=== PATIENT | male | born 1975 | race Caucasian/White ===

== ENCOUNTER 2017-08-21 18:33 | Observation (INO) | payer BC ==
[2017-08-21] MEDS ORDERED: ASPIRIN 81 MG TABLET, CHEWABLE PO ONE (18:44)
--- NOTE | 2017-08-21 18:48 | ER Document Report ---
ED Medical Screen (RME) - General Chief Complaint: Chest Pain Stated Complaint: CHEST PAIN Time Seen by Provider: 08/21/17 18:44 TRAVEL OUTSIDE OF THE [place] IN LAST 30 DAYS: No - HPI Notes: 08/21/17 18:47 Chest pressure just prior to arrival at 6:00. No past medical history does not smoke does not drink brother has atrial fibrillation - Related Data Allergies/Adverse Reactions: Penicillins Adverse Reaction (Mild, Verified 08/21/17 18:43) Past Medical History - Past Medical History Cardiac Medical History: Denies: Hx Coronary Artery Disease, Hx Heart Attack, Hx Hypertension Pulmonary Medical History: Reports: Hx Pneumonia - x 1 Denies: Hx Asthma, Hx Bronchitis, Hx COPD Neurological Medical History: Denies: Hx Cerebrovascular Accident, Hx Seizures Renal/ Medical History: Denies: Hx Peritoneal Dialysis Musculoskeltal Medical History: Denies Hx Arthritis Past Surgical History: Reports: Hx Orthopedic Surgery. Denies: Hx Pacemaker - Immunizations Hx Diphtheria, Pertussis, Tetanus Vaccination: No Review of Systems - Review of Systems Cardiovascular: Chest pain Respiratory: Short of breath Physical Exam - Vital signs Vitals: Temp Pulse BP Pulse Ox 98.2 F 93 133/83 H 100 08/21/17 18:40 08/21/17 18:40 08/21/17 18:40 08/21/17 18:40 - Cardiovascular Rhythm: Regular Heart sounds: Normal auscultation Course - Vital Signs Vital signs: Temp Pulse Resp BP Pulse Ox 98.2 F 93 133/83 H 100 08/21/17 18:40 08/21/17 18:40 08/21/17 18:40 08/21/17 18:40
--- NOTE | 2017-08-21 19:14 | RADIOLOGY REPORT (SQ) ---
EXAM DESCRIPTION: CHEST SINGLE VIEW COMPLETED DATE/TIME: 08/21/2017 7:08 pm REASON FOR STUDY: cp COMPARISON: 08/07/2011. EXAM PARAMETERS: NUMBER OF VIEWS: One view. TECHNIQUE: Single frontal radiographic view of the chest acquired. RADIATION DOSE: NA LIMITATIONS: None. FINDINGS: LUNGS AND PLEURA: No opacities, masses or pneumothorax. No pleural effusion. MEDIASTINUM AND HILAR STRUCTURES: No masses. Contour normal. HEART AND VASCULAR STRUCTURES: Heart normal in size. Normal vasculature. BONES: No acute findings. HARDWARE: None in the chest. OTHER: No other significant finding. IMPRESSION: NO ACUTE RADIOGRAPHIC FINDING IN THE CHEST. TECHNICAL DOCUMENTATION: JOB ID: [id number]
[2017-08-21] MEDS ORDERED: NITROGLYCERIN 2% OINTMENT 1 GM PACKET TP ONE (19:23)
[2017-08-21 19:45] LABS: PROTHROMBIN TIME 13.3 SEC (11.4-15.4)
[2017-08-21 19:56] LABS: ABSOLUTE EOSINOPHILS # (AUTO) 0.1 10^3/uL (0.0-0.6); ABSOLUTE LYMPHOCYTES (AUTO) 2.3 10^3/uL (0.5-4.7); ABSOLUTE MONOCYTES (AUTO) 0.7 10^3/uL (0.1-1.4); ABSOLUTE NEUT (AUTO) 6.4 10^3/uL (1.7-8.2); ALANINE AMINOTRANSFERASE 56 U/L (21-72); ALBUMIN 4.9 g/dL (3.5-5.0); ALKALINE PHOSPHATASE 83 U/L (38-126); ANION GAP 17 (5-19); ASPARTATE AMINO TRANSFERASE 26 U/L (17-59); BASOPHILS % (AUTO) 0.4 % (0-2); BILIRUBIN,DIRECT 0.4 mg/dL (0.0-0.4); BILIRUBIN,TOTAL 0.8 mg/dL (0.2-1.3); BLOOD UREA NITROGEN 20 mg/dL (7-20); CALCIUM 10.3 mg/dL (8.4-10.2); CARBON DIOXIDE 22 mmol/L (22-30); CHLORIDE 104 mmol/L (98-107); CREATINE KINASE 228 U/L (55-170); CREATININE RESULT 0.81 mg/dL (0.52-1.25); EOSINOPHILS % (AUTO) 0.7 % (0-6); GLUCOSE 116 mg/dL (75-110); HEMATOCRIT 41.7 % (37.9-51.0); HEMOGLOBIN 14.9 g/dL (13.5-17.0); LIPASE 117.1 U/L (23-300); LYMPHOCYTES % (AUTO) 24.1 % (13-45); MAGNESIUM 1.8 mg/dL (1.6-2.3); MEAN CORPUSCULAR HEMOGLOBIN 30.4 pg (27.0-33.4); MEAN CORPUSCULAR HGB CONC 35.6 g/dL (32.0-36.0); MEAN CORPUSCULAR VOLUME 85 fl (80-97); MONOCYTES % (AUTO) 7.4 % (3-13); POTASSIUM 3.7 mmol/L (3.6-5.0); RED BLOOD COUNT 4.89 10^6/uL (4.35-5.55); RED CELL DISTRIBUTION WIDTH 13.1 % (11.5-14.0); SEGMENTED NEUTROPHILS % (AUTO) 67.4 % (42-78); SODIUM 142.7 mmol/L (137-145); TOTAL PROTEIN 7.9 g/dL (6.3-8.2); WHITE BLOOD COUNT 9.5 10^3/uL (4.0-10.5)
[2017-08-21 20:03] LABS: D-DIMER < 0.27 ug/mL (0.00-0.50)
[2017-08-21 20:08] LABS: CREATINE KINASE MB 2.4 ng/mL (<4.55); TROPONIN I 0.013 ng/mL
--- NOTE | 2017-08-21 20:25 | EKG REPORT ---
SEVERITY:- OTHERWISE NORMAL ECG - SINUS RHYTHM BORDERLINE LEFT AXIS DEVIATION : Confirmed by: Isabelle Shaw MD 21-Aug-2017 20:24:32
[2017-08-21] MEDS ORDERED: NITROGLYCERIN 0.4 MG/TAB 25 TAB/BOTTLE ONE (20:47)
[2017-08-21] MEDS ORDERED: NITROGLYCERIN 0.4 MG/TAB 25 TAB/BOTTLE SL PRN ×2 (21:13→21:21)
[2017-08-21] MEDS ORDERED: LANSOPRAZOLE 15 MG TAB.RAP.DR PO ONE (21:21)
[2017-08-21] MEDS ORDERED: MORPHINE SULFATE 10 MG/ML INJ IV PRN (21:21)
[2017-08-21] MEDS ORDERED: ONDANSETRON HCL INJ/PF 4 MG/2 ML SDV IV PRN (21:21)
--- NOTE | 2017-08-21 21:23 | ER Document Report ---
ED General - General Chief Complaint: Chest Pain Stated Complaint: CHEST PAIN Time Seen by Provider: 08/21/17 18:44 Notes: Patient is a 42-year-old male with past medical history of obesity who presents with chest pain. Patient states that he had a constant chest burning all day today while at work. States that he left work at approximately 5:30 PM to go to his son's soccer game, when he exited his car and began walking towards his where his was seated he developed a severe, crushing pain over the left side of his chest. States that as he continued to walk he became extremely short of breath, diaphoretic and felt as though he was about to vomit. His at the bedside reports that when she saw him walking up to her, she ended a phone call she was on because he appeared so ill. She notes that he was extremely diaphoretic and appeared to be clutching over his left chest. Patient states that when he sat back down in the car he did have significant improvement of the chest pain. He has no history of similar symptoms in the past. No family cardiac history. Patient has no personal cardiac history. At time of my assessment he states that his pain is now mostly resolved. He no longer feels short of breath. He has no history of DVT or pulmonary embolus. Notes that when he was having this episode of pain apparently his heart rate on his Fitbit was listed as 150. TRAVEL OUTSIDE OF THE [place] IN LAST 30 DAYS: No - Related Data Allergies/Adverse Reactions: Penicillins Adverse Reaction (Mild, Verified 08/21/17 18:43) Past Medical History - General Information source: Patient - Social History Smoking Status: Never Smoker Frequency of alcohol use: None Drug Abuse: None Lives with: Spouse/Significant other Family History: Reviewed & Not Pertinent - Past Medical History Cardiac Medical History: Denies: Hx Coronary Artery Disease, Hx Heart Attack, Hx Hypertension Pulmonary Medical History: Reports: Hx Pneumonia - x 1 Denies: Hx Asthma, Hx Bronchitis, Hx COPD Neurological Medical History: Denies: Hx Cerebrovascular Accident, Hx Seizures Renal/ Medical History: Denies: Hx Peritoneal Dialysis Musculoskeltal Medical History: Denies Hx Arthritis Past Surgical History: Reports: Hx Orthopedic Surgery. Denies: Hx Pacemaker - Immunizations Hx Diphtheria, Pertussis, Tetanus Vaccination: No Review of Systems - Review of Systems Notes: Constitutional: Negative for fever. HENT: Negative for sore throat. Eyes: Negative for visual changes. Cardiovascular: Positive for chest pain. Respiratory: Negative for shortness of breath. Gastrointestinal: Negative for abdominal pain, vomiting or diarrhea. Genitourinary: Negative for dysuria. Musculoskeletal: Negative for back pain. Skin: Negative for rash. Neurological: Negative for headaches, weakness or numbness. 10 point ROS negative except as marked above and in HPI. Physical Exam - Vital signs Vitals: Temp Pulse BP Pulse Ox 98.2 F 93 133/83 H 100 08/21/17 18:40 08/21/17 18:40 08/21/17 18:40 08/21/17 18:40 Interpretation: Normal Notes: PHYSICAL EXAMINATION: GENERAL: Well-appearing, well-nourished and in no acute distress. HEAD: Atraumatic, normocephalic. EYES: Pupils equal round and reactive to light, extraocular movements intact, sclera anicteric, conjunctiva are normal. ENT: nares patent, oropharynx clear without exudates. Moist mucous membranes. NECK: Normal range of motion, supple without lymphadenopathy LUNGS: Breath sounds clear to auscultation bilaterally and equal. No wheezes rales or rhonchi. HEART: Regular rate and rhythm without murmurs ABDOMEN: Soft, nontender, normoactive bowel sounds. No guarding, no rebound. No masses appreciated. EXTREMITIES: Normal range of motion, no pitting or edema. No cyanosis. NEUROLOGICAL: No focal neurological deficits. Moves all extremities spontaneously and on command. PSYCH: Normal mood, normal affect. SKIN: Warm, Dry, normal turgor, no rashes or lesions noted. Course - Re-evaluation Re-evalutation: 08/21/17 21:22 Patient presents with a very worrisome chest pain story including diaphoresis, shortness of breath with a chest pressure during exertion. Patient's only known risk factor is obesity although he does not follow with any kind of primary care provider where he would know his risk factors at baseline. He is chest pain-free after 2 sublingual nitroglycerin. He has received aspirin. EKG does not show any ischemic changes and initial troponin is normal. However given the very concerning nature of his story, I have discussed this case with the hospitalist on-call Dr. Bird who will admit. - Vital Signs Vital signs: Temp Pulse Resp BP Pulse Ox 97.5 F 64 16 121/80 97 08/22/17 00:00 08/22/17 00:00 08/22/17 00:00 08/22/17 00:00 08/22/17 00:00 - Laboratory Result Diagrams: 08/21/17 19:06 08/21/17 19:06 Laboratory results interpreted by me: 08/21/17 19:06 Glucose 116 H Calcium 10.3 H Creatine Kinase 228 H - Diagnostic Test Radiology reviewed: Image reviewed, Reports reviewed Radiology results interpreted by me: 08/21/17 21:23 Chest x-ray: No acute infiltrate or pneumothorax - EKG Interpretation by Me Additional EKG results interpreted by me: 08/21/17 21:23 Normal sinus rhythm. Rate 87. No ST elevations or depressions. QTC is 443. Discharge - Discharge Clinical Impression: Chest pain Qualifiers: Chest pain type: unspecified Qualified Code(s): R07.9 - Chest pain, unspecified Condition: Fair Disposition: ADMITTED OBSERVATION Admitting Provider: Hospitalist - [place] [facility] Admitted: Telemetry
[2017-08-21] MEDS ORDERED: INFLUENZA ADLT QUAD (36MOS+) 2017-18 VAC 0.5 ML SYR IM PRN (23:13)
[2017-08-21] MEDS ORDERED: NORMAL SALINE 1000 ML 1,000 ML IV PRN (23:17)
--- NOTE | 2017-08-21 23:24 | PDOC H&P ---
History of Present Illness Admission Date/PCP: 08/21/17 21:21 SEBASTIAN TUBBS MD History of Present Illness: JOSHUA MAI is a 42 year old male with no past medical history who presents to the emergency department with complaints of chest pain. Patient reports earlier today he had some chest burning at work and then had no relief with Tums. He reports he does not normally have indigestion. He then went to his son's soccer game and when walking across the feel he developed substernal chest pressure which did not radiate. He reports that this was a 10 out of 10. He denies any radiation. He reports associated diaphoresis, shortness of breath and nausea but denies any associated vomiting or metallic taste in his mouth. He reports that his heart rate went up to 150s according to his Fitbit. He was having a difficult time walking. He reports that the chest pressure improved with rest and was completely ameliorated by 2 sublingual nitroglycerin. Patient has not seen a primary care physician in approximately 3 years. He is referred to hospital service for chest pain. Past Medical History Cardiac Medical History: Denies: Coronary Artery Disease, Myocardial Infarction, Hypertension Pulmonary Medical History: Reports: Pneumonia - x 1 Denies: Asthma, Bronchitis, Chronic Obstructive Pulmonary Disease (COPD) Neurological Medical History: Denies: Seizures Musculoskeltal Medical History: Denies: Arthritis Hematology: Denies: Anemia Past Surgical History Past Surgical History: Reports: Herniorrhaphy, Orthopedic Surgery Denies: Pacemaker Social History Smoking Status: Never Smoker Frequency of Alcohol Use: Occasional Amount of Alcoholic Beverages Per Day: 2 or 3 beers on the weekend Hx Recreational Drug Use: No Drugs: None Hx Prescription Drug Abuse: No - Advance Directive Resuscitation Status: Full Code Surrogate healthcare decision maker:: Rebeka Mai, Family History Family History: Hypertension, Other - Father of complications of AVM and persistent vegetative state Parental Family History Reviewed: Yes Children Family History Reviewed: Yes Sibling(s) Family History Reviewed.: Yes Medication/Allergy Home Medications: No Home Medications 03/16/15 Allergies/Adverse Reactions: Penicillins Adverse Reaction (Mild, Verified 08/21/17 18:43) Review of Systems Constitutional: ABSENT: chills, fever(s), headache(s), weight gain, weight loss Eyes: ABSENT: visual disturbances Ears: ABSENT: hearing changes Cardiovascular: PRESENT: as per HPI. ABSENT: chest pain, dyspnea on exertion, edema, orthropnea, palpitations Respiratory: ABSENT: cough, hemoptysis Gastrointestinal: ABSENT: abdominal pain, constipation, diarrhea, hematemesis, hematochezia, nausea, vomiting Genitourinary: ABSENT: dysuria, hematuria Musculoskeletal: ABSENT: joint swelling Integumentary: ABSENT: rash, wounds Neurological: ABSENT: abnormal gait, abnormal speech, confusion, dizziness, focal weakness, syncope Psychiatric: ABSENT: anxiety, depression, homidical ideation, suicidal ideation Endocrine: ABSENT: cold intolerance, heat intolerance, polydipsia, polyuria Hematologic/Lymphatic: ABSENT: easy bleeding, easy bruising Physical Exam Vital Signs: Temp Pulse Resp BP Pulse Ox 98 F 93 21 H 115/79 97 08/21/17 22:05 08/21/17 18:40 08/21/17 22:01 08/21/17 22:01 08/21/17 22:01 General appearance: PRESENT: no acute distress, obese, well-developed, well- nourished Head exam: PRESENT: atraumatic, normocephalic Eye exam: PRESENT: conjunctival injection - Bilateral, conjunctiva pink, EOMI, PERRLA. ABSENT: scleral icterus Ear exam: PRESENT: normal external ear exam Mouth exam: PRESENT: moist, tongue midline Neck exam: ABSENT: carotid bruit, JVD, lymphadenopathy, thyromegaly, tracheal deviation Respiratory exam: PRESENT: clear to auscultation oc. ABSENT: rales, rhonchi, wheezes Cardiovascular exam: PRESENT: RRR, +S1, +S2. ABSENT: diastolic murmur, gallop, rubs, systolic murmur Pulses: PRESENT: normal dorsalis pedis pul Vascular exam: PRESENT: normal capillary refill GI/Abdominal exam: PRESENT: normal bowel sounds, soft. ABSENT: distended, guarding, mass, organolmegaly, rebound, tenderness Rectal exam: PRESENT: deferred Extremities exam: PRESENT: full ROM. ABSENT: calf tenderness, clubbing, pedal edema Neurological exam: PRESENT: alert, awake, oriented to person, oriented to place , oriented to time, oriented to situation, CN II-XII grossly intact. ABSENT: motor sensory deficit Psychiatric exam: PRESENT: appropriate affect, normal mood. ABSENT: homicidal ideation, suicidal ideation Skin exam: PRESENT: dry, intact, warm. ABSENT: cyanosis, rash Results Laboratory Results: 08/21/17 08/21/17 08/21/17 19:06 19:06 19:06 WBC 9.5 Hgb 14.9 Hct 41.7 MCV 85 Plt Count 218 INR 0.94 D-Dimer < 0.27 Sodium 142.7 Potassium 3.7 Anion Gap 17 BUN 20 Creatinine 0.81 Glucose 116 H Calcium 10.3 H Magnesium 1.8 Total Bilirubin 0.8 AST 26 ALT 56 Alkaline Phosphatase 83 Creatine Kinase 228 H CK-MB (CK-2) Troponin I Albumin 4.9 Lipase 117.1 08/21/17 19:06 WBC Hgb Hct MCV Plt Count INR D-Dimer Sodium Potassium Anion Gap BUN Creatinine Glucose Calcium Magnesium Total Bilirubin AST ALT Alkaline Phosphatase Creatine Kinase CK-MB (CK-2) 2.40 Troponin I 0.013 Albumin Lipase EKG Comments: Q waves in 1 and aVL, normal sinus rhythm Impressions: Chest X-Ray 08/21/17 18:44 IMPRESSION: NO ACUTE RADIOGRAPHIC FINDING IN THE CHEST. Status: Imported from PACS Assessment & Plan - Diagnosis (1) Chest pain Qualifiers: Chest pain type: unspecified Qualified Code(s): R07.9 - Chest pain, unspecified Is this a current diagnosis for this admission?: Yes Plan: Place patient on telemetry and rule out for acute coronary syndrome. Patient's story is quite concerning for myocardial infarction. Monitor cardiac enzymes and EKG every 6. Place patient on Lovenox, oxygen, Lipitor, metoprolol, morphine, aspirin, and nitroglycerin. Obtain Cardiolite stress test if cardiac enzymes are negative. (2) Obesity (BMI 30.0-34.9) Is this a current diagnosis for this admission?: Yes Plan: Encourage weight loss - Time Time Spent: 30 to 50 Minutes Medications reviewed and adjusted accordingly: Yes Anticipated discharge: Home Within: within 24 hours - Inpatient Certification Based on my medical assessment, after consideration of the patient's comorbidities, presenting symptoms, or acuity I expect that the services needed warrant INPATIENT care.: Yes I certify that my determination is in accordance with my understanding of Medicare's requirements for reasonable and necessary INPATIENT services [42 CFR 412.3e].: Yes Medical Necessity: Need For Continuous Telemetry Monitoring Post Hospital Care: D/C Family Living Educator Documentation
[2017-08-21] MEDS: ENOXAPARIN SODIUM INJ 100 MG/1 ML DISP.SYRIN SUBCUT SCH (23:39)
[2017-08-21] MEDS: METOPROLOL TARTRATE PF/INJ 5 MG/5 ML SDV IV PRN ×3 (23:43→23:51)
[2017-08-22] MEDS ORDERED: METOPROLOL TARTRATE PF/INJ 5 MG/5 ML SDV IV PRN (00:08)
[2017-08-22] MEDS: METOPROLOL TARTRATE PF/INJ 5 MG/5 ML SDV IV PRN (00:10)
[2017-08-22 01:29] LABS: URINE BARBITURATES SCREEN NEGATIVE; URINE METHADONE SCREEN NEGATIVE; URINE OPIATES LOW NEGATIVE; URINE PHENCYCLIDINE SCREEN NEGATIVE
[2017-08-22 02:52] LABS: CREATINE KINASE MB 1.61 ng/mL (<4.55)
[2017-08-22 03:04] LABS: TROPONIN I < 0.012 ng/mL
[2017-08-22] MEDS ORDERED: LANSOPRAZOLE 30 MG TAB.RAP.DR PO SCH (06:00)
[2017-08-22 08:35] LABS: HEMATOCRIT 41.2 % (37.9-51.0); HEMOGLOBIN 14.5 g/dL (13.5-17.0); HGB HCT DIFFERENCE 2.3; MEAN CORPUSCULAR HEMOGLOBIN 30.3 pg (27.0-33.4); MEAN CORPUSCULAR HGB CONC 35.2 g/dL (32.0-36.0); MEAN CORPUSCULAR VOLUME 86 fl (80-97); RED BLOOD COUNT 4.78 10^6/uL (4.35-5.55); RED CELL DISTRIBUTION WIDTH 13.2 % (11.5-14.0); WHITE BLOOD COUNT 7.9 10^3/uL (4.0-10.5)
[2017-08-22 08:54] LABS: ANION GAP 14 (5-19); BLOOD UREA NITROGEN 16 mg/dL (7-20); CALCIUM 9.4 mg/dL (8.4-10.2); CARBON DIOXIDE 21 mmol/L (22-30); CHLORIDE 108 mmol/L (98-107); CREATINE KINASE 136 U/L (55-170); CREATININE RESULT 0.71 mg/dL (0.52-1.25); Direct HDL 43 mg/dL (>40); GLUCOSE 97 mg/dL (75-110); POTASSIUM 4.4 mmol/L (3.6-5.0); TRIGLYCERIDES 90 mg/dL (<150)
[2017-08-22 09:05] LABS: DIRECT LDL 119 mg/dL (<100)
[2017-08-22 09:06] LABS: CREATINE KINASE MB 1.41 ng/mL (<4.55)
[2017-08-22 09:11] LABS: TROPONIN I < 0.012 ng/mL
[2017-08-22 09:28] LABS: APPEARANCE,URINE SLIGHTLY-CLOUDY; BILIRUBIN,URINE NEGATIVE (NEGATIVE); GLUCOSE, URINE NEGATIVE (NEGATIVE); KETONES,URINE NEGATIVE (NEGATIVE); LEUKOCYTE ESTERASE,URINE NEGATIVE (NEGATIVE); NITRITE,URINE NEGATIVE (NEGATIVE); PROTEIN,URINE NEGATIVE (NEGATIVE); URINE SPECIFIC GRAVITY 1.018; UROBILINOGEN,URINE NEGATIVE mg/dL (<2.0)
[2017-08-22] MEDS ORDERED: LISINOPRIL 10 MG TABLET PO SCH (10:00)
[2017-08-22] MEDS ORDERED: ASPIRIN 325 MG TABLET, ENT COATED PO SCH (10:00)
[2017-08-22] MEDS: ENOXAPARIN SODIUM INJ 100 MG/1 ML DISP.SYRIN SUBCUT SCH (11:00)
[2017-08-22] MEDS ORDERED: REGADENOSON INJ 0.4 MG/5 ML DISP.SYRIN IV ONE (11:01)
[2017-08-22] MEDS ORDERED: AMINOPHYLLINE INJ/PF 250 MG/10 ML SDV IV ONE (11:01)
--- NOTE | 2017-08-22 12:29 | EKG REPORT ---
SEVERITY:- BORDERLINE ECG - SINUS RHYTHM BORDERLINE LEFT AXIS DEVIATION BORDERLINE T WAVE ABNORMALITIES : Confirmed by: Isabelle Shaw MD 22-Aug-2017 12:29:07
--- NOTE | 2017-08-22 12:30 | EKG REPORT ---
SEVERITY:- BORDERLINE ECG - SINUS RHYTHM BORDERLINE T WAVE ABNORMALITIES : Confirmed by: Isabelle Shaw MD 22-Aug-2017 12:29:14
--- NOTE | 2017-08-22 12:30 | EKG REPORT ---
SEVERITY:- BORDERLINE ECG - SINUS RHYTHM BORDERLINE LEFT AXIS DEVIATION BORDERLINE T WAVE ABNORMALITIES : Confirmed by: Isabelle Shaw MD 22-Aug-2017 12:29:10
--- NOTE | 2017-08-22 13:00 | DRAGON STRESS TEST REPORT ---
INTRAVENOUS LEXISCAN CARDIOLITE STRESS TEST USING SINGLE PHOTON EMMISION COMPUTERIZED TOMOGRAPHIC. DATE OF PROCEDURE: August 22, 2017 INDICATION : Chest pain CARDIAC RISK FACTORS: Hypertension RESTING EKG: Sinus rhythm without any baseline ST-T wave changes STRESS EKG: No significant changes noted with LexiScan bolus REASON FOR TERMINATION: Protocol. PROCEDURE REPORT: Baseline heart rate 67 beats per minute with blood pressure of 121/69. Patient had no significant complaints. Heart rate at 2 minutes post bolus 87 with a blood pressure of 126/52. 3 minutes post bolus heart rate 76 with blood pressure of 113/61. No significant EKG changes were noted. Patient had no significant complaints during the procedure or postprocedure. Patient injected with Aminophyllin 75 mg at 3 minutes or later after Lexiscan bolus. CONCLUSIONS: Normal EKG and hemodynamic response to IV LexiScan. NUCLEAR DATA: At rest the patient was given 14.91 millicuries of technetium 99 sestamibi injected intravenously. As per protocol rest gated SPECT images were obtained. Subsequently the patient was given intravenous LexiScan at a dose of 0.4 mg in 5 mL intravenously, followed by flush with normal saline. Subsequently the stress dose of 44.0 millicuries of technetium 99 sestamibi was injected intravenously. As per protocol stress gated images were obtained. NUCLEAR INTERPRETATION: Both raw and processed data were used for interpretation. Visual, qualitative, computer-generated quantitative data was used. There was good myocardial uptake of technetium compound. Motion artifact and soft tissue attenuations were noted. Increased visceral uptake was noted. No definitive areas of transient perfusion defect noted, except for a small area of mild decreased uptake in the distal inferior wall however this can be related to differences in diaphragmatic attenuation artifact. However a small area of mild ischemia cannot be ruled out. No corresponding wall motion abnormalities noted. No definitive areas of fixed perfusion defect or scars noted. EKG gated imaging showed LV EF at 50 %, rest and stress gated EF similar visually. T. I D. ratio was 1.04. Lung heart ratio noted to be within normal limits 0.34. No significant extracardiac and abnormal radiotracer activities were noted. RV free wall uptake was noted to be increased. IMPRESSION: Also refer to comments under nuclear interpretation. Also test results needs to be interpreted in the context of pretest probability. 1. No definitive areas of transient perfusion defect noted, except for a small area of mild decreased uptake in the distal inferior wall, this can be related to differences in diaphragmatic attenuation artifact. However a small area of mild ischemia cannot be ruled out. 2. There is no definitive scintigraphic evidence of myocardial infarction/scar. 3. EKG gated imaging shows left ventricular ejection fraction of approximately 50 %. 4. Clinical correlation requested as occasionally single vessel disease or balanced ischemia could be missed. In approximately 10% of the cases Lexiscan may not cause adequate vasodilatory stress. RECOMMENDATIONS: Aggressive risk factor modification, medical therapy. Cardiology follow-up. Clinical correlation with echocardiogram derived ejection fraction. Inability to exercise by itself can lead to increased cardiovascular event risks. Consider cardiology consultation and or follow-up if clinically indicated. I AM AVAILABLE FOR CARDIOLOGY CONSULTATION AND FOLLOWUP IF REQUESTED BY PMD Pravin Fountain M.D., [facility]ITALMajor Regulatory Intern architecture department chair, Board certified in cardiovascular diseases, Nuclear cardiology, Echocardiography Cardiac CT and cardiac MRI Ph. [phone] Interpreting Physician: PRAVIN FOUNTAIN MD [id number] JOB: [id number] CC: LAURA WHITE MD > [facility]
[2017-08-22 14:33] LABS: TROPONIN I < 0.012 ng/mL
[2017-08-22 14:51] VITALS: BP 121/80
--- NOTE | 2017-08-22 15:02 | PDOC DISCHARGE SUMMARY ---
General - Admit/Disc Date/PCP Admission Date/Primary Care Provider: 08/21/17 21:21 SEBASTIAN TUBBS MD Discharge Date: 08/22/17 - Discharge Diagnosis (1) Chest pain Is this a current diagnosis for this admission?: Yes Summary: This is a 42-year-old male past medical history denies having a primary care physician because he has been "fairly healthy up until now". Patient reported having heartburn all day then he had acute onset sudden chest pain which was substernal did not radiate. He became diaphoretic and short of breath nauseated without emesis, states his chest pain had went away after he received 2 sublingual nitroglycerin was treated in the emergency room. He had a stress test done today that was negative. With no significant EKG changes noted. (2) Obesity (BMI 30.0-34.9) Is this a current diagnosis for this admission?: Yes Summary: Encourage lifestyle modification, encourage education encouraged slow steady weight loss. - Additional Information Resuscitation Status: Full Code Discharge Diet: Regular Discharge Activity: Activity As Tolerated Home Medications: Aspirin [Ecotrin 325 mg EC Tablet] 325 mg PO DAILY tabec 08/22/17 Lisinopril [Prinivil 10 mg Tablet] 10 mg PO DAILY 30 Days #30 tablet 08/22/17 History of Present Illness History of Present Illness: JOSHUA GARCIA is a 42 year old male Hospital Course Hospital Course: Patient had normal labs except for his LDH was 119. Asked the patient if he wanted me to put him on some medication and will follow up with his primary care physician he states he rather just follow up with them. I was not 100% sure that this lab was a fasting glucose Physical Exam Vital Signs: Temp Pulse Resp BP Pulse Ox 98.1 F 64 18 143/91 H 98 08/22/17 11:54 08/22/17 11:54 08/22/17 11:54 08/22/17 11:54 08/22/17 11:54 Intake & Output 08/21/17 08/22/17 08/23/17 06:59 06:59 06:59 Intake Total 300 600 Output Total 700 800 Balance -400 -200 Weight 103.1 kg General appearance: PRESENT: no acute distress, well-developed, well-nourished Head exam: PRESENT: atraumatic, normocephalic Eye exam: PRESENT: conjunctiva pink, EOMI, PERRLA. ABSENT: scleral icterus Ear exam: PRESENT: normal external ear exam Mouth exam: PRESENT: moist, tongue midline Neck exam: ABSENT: carotid bruit, JVD, lymphadenopathy, thyromegaly Respiratory exam: PRESENT: clear to auscultation oc. ABSENT: rales, rhonchi, wheezes Cardiovascular exam: PRESENT: RRR. ABSENT: diastolic murmur, rubs, systolic murmur Pulses: PRESENT: normal dorsalis pedis pul Vascular exam: PRESENT: normal capillary refill GI/Abdominal exam: PRESENT: normal bowel sounds, soft. ABSENT: distended, guarding, mass, organolmegaly, rebound, tenderness Rectal exam: PRESENT: deferred Extremities exam: PRESENT: full ROM. ABSENT: calf tenderness, clubbing, pedal edema Neurological exam: PRESENT: alert, awake, oriented to person, oriented to place , oriented to time, oriented to situation, CN II-XII grossly intact. ABSENT: motor sensory deficit Psychiatric exam: PRESENT: appropriate affect, normal mood. ABSENT: homicidal ideation, suicidal ideation Skin exam: PRESENT: dry, intact, warm. ABSENT: cyanosis, rash Results Laboratory Results: 08/22/17 08:25 08/22/17 08:25 08/22/17 08/22/17 08/22/17 00:50 00:50 08:25 WBC 7.9 RBC 4.78 Hgb 14.5 Hct 41.2 MCV 86 MCH 30.3 MCHC 35.2 RDW 13.2 Plt Count 187 Sodium Potassium Chloride Carbon Dioxide Anion Gap BUN Creatinine Est GFR ( Amer) Est GFR (Non-Af Amer) Glucose Calcium Triglycerides Cholesterol LDL Cholesterol Direct VLDL Cholesterol HDL Cholesterol Urine Color YELLOW Urine Appearance SLIGHTLY-CLOUDY Urine pH 6.0 Ur Specific Bond 1.018 Urine Protein NEGATIVE Urine Glucose (UA) NEGATIVE Urine Ketones NEGATIVE Urine Blood NEGATIVE Urine Nitrite NEGATIVE Ur Leukocyte Esterase NEGATIVE Urine WBC (Auto) 0 Urine RBC (Auto) 1 Stool Occult Blood NEGATIVE 08/22/17 08:25 WBC RBC Hgb Hct MCV MCH MCHC RDW Plt Count Sodium 143.0 Potassium 4.4 Chloride 108 H Carbon Dioxide 21 L Anion Gap 14 BUN 16 Creatinine 0.71 Est GFR ( Amer) > 60 Est GFR (Non-Af Amer) > 60 Glucose 97 Calcium 9.4 Triglycerides 90 Cholesterol 181.90 LDL Cholesterol Direct 119 H VLDL Cholesterol 18.0 HDL Cholesterol 43 Urine Color Urine Appearance Urine pH Ur Specific Bond Urine Protein Urine Glucose (UA) Urine Ketones Urine Blood Urine Nitrite Ur Leukocyte Esterase Urine WBC (Auto) Urine RBC (Auto) Stool Occult Blood 08/22/17 08/22/17 08/22/17 02:19 08:25 08:25 Creatine Kinase 136 CK-MB (CK-2) 1.61 1.41 Troponin I < 0.012 < 0.012 08/22/17 13:20 Creatine Kinase CK-MB (CK-2) 1.10 Troponin I < 0.012 Impressions: Chest X-Ray 08/21/17 18:44 IMPRESSION: NO ACUTE RADIOGRAPHIC FINDING IN THE CHEST. Plan Discharge Plan: Encourage weight loss, low-sodium diet, watch his cholesterol intake. I have requested that he follow-up with a primary care physician to get blood work done and to be evaluated for further reasons of chest pain which could be GERD or esophageal spasm. I have encouraged that he may follow-up with a EGD or continue taking [id number] PPI Prilosec 20 mg daily. I have also encouraged that he take a baby aspirin daily patient was started on lisinopril 10 mg p.o. daily since his blood pressure was mildly elevated and this could be beneficial for someone with coronary artery disease. Time Spent: Less than 30 Minutes
== END 2017-08-22 15:39 | disposition home or self-care (01) ==
LOC: EEVIPCON 18:33 → ER 18:33 → EH 21:21 → UNDOADMOB 21:30 → 4W 22:14
PROVIDERS: ADMIT Family Medicine; ATTEND Family Medicine
DX: R07.2 Precordial pain (principal); E66.9 Obesity, unspecified; R12 Heartburn; R06.02 Shortness of breath; R61 Generalized hyperhidrosis; R11.0 Nausea; R03.0 Elevated blood-pressure reading, without diagnosis of hypertension; Z79.82 Long term (current) use of aspirin; Z79.899 Other long term (current) drug therapy; Z87.01 Personal history of pneumonia (recurrent); Z82.49 Family history of ischemic heart disease and other diseases of the circulatory system; Z68.34 Body mass index [BMI] 34.0-34.9, adult
CPT/HCPCS: 93005 ×3; 99285; 36415 ×2; 82553 ×2; 82550 ×2; 83690; 83735; 85025; 85027; 85610; 82272; 80048; 80053; 81001; 84484 ×2; 80307; 85379; 80061; 93017; 71010; 78452; 93010 ×2; A9500; J2785; J3490; J1650 ×2; J0280; Q9969